=== PATIENT | female | born 1945 | race Caucasian/White ===

== ENCOUNTER → 2023-10-21 | Outpatient (CLI) | payer MEDICARE, OTHER ==
--- NOTE | 2023-10-21 21:34 | XR ---
EXAMINATION TYPE: XR knee complete RT DATE OF EXAM: 10/21/2023 5:01 PM CLINICAL INDICATION:Female, 78 years old with history of [id number] RT KNEE PAIN; COMPARISON: None. TECHNIQUE: XR knee complete RT; examined in Frontal, lateral and oblique projections. FINDINGS: No evidence of any acute osseous pathology, soft tissue swelling, or joint effusion is no maite. Tricompartmental osteophyte formation involving the femoral condyles, tibial plateau and patella . Medial joint space narrowing. IMPRESSION: 1. No acute osseous pathology. 2. 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
== END | disposition home or self-care (01) ==
LOC: RADXRYALE 16:48
PROVIDERS: ATTEND Internal Medicine
DX: M25.561 Pain in right knee (principal); M17.11 Unilateral primary osteoarthritis, right knee